=== PATIENT | female | born 1990 | race Caucasian/White ===

== ENCOUNTER 2018-11-14 23:18 | Emergency (ER) | payer OTHER, SELFPAY ==
[2018-11-14 23:33] VITALS: BP 148/85; PULSE 111; RESP 22; O2SAT 98
[2018-11-14] MEDS: SODIUM CHLORIDE 0.9% 1,000 ML 1000 ML IV (23:55)
[2018-11-15 00:01] LABS: Add Manual Diff / Slide Review NO; Basophils Absolute Auto 100 /uL (0-100); Basophils Percent Auto 1.2 % (0-2); Eosinophils Absolute Auto 100 /uL (0-450); Eosinophils Percent Auto 0.9 % (2-4); Hematocrit 42.7 % (36-46); Hemoglobin 14.5 g/dL (12.0-16.0); Lymphocytes Absolute Auto 1700 /uL (1100-4500); Lymphocytes Percent Auto 26.3 % (25-40); Mean Corpuscular HGB Conc 33.9 % (30-36); Mean Corpuscular Hemoglobin 31.7 PG (26-34); Mean Corpuscular Volume 93.7 fL (80-100); Monocytes Absolute Auto 600 /uL (0-900); Monocytes Percent Auto 9.8 % (3-14); Neutrophils Absolute Auto 3900 /uL (1500-7000); Neutrophils Percent Auto 61.8 % (50-75); Platelet Count 405 X10^3/uL (150-400); Red Blood Cell Count 4.56 X10^6/uL (4.0-5.2); White Blood Cell Count 6.3 X10^3/uL (4.5-11.0)
[2018-11-15 00:16] LABS: Alanine Aminotransferase 305 IU/L (9-52); Albumin 5.1 g/dL (3.5-5.0); Albumin Globulin Ratio 1.5 (1.0-2.8); Alkaline Phosphatase 68 U/L (38-126); Aspartate Aminotransferase 641 IU/L (14-36); BUN Creatinine Ratio 13.3 (6-22); Bilirubin Total 1.1 mg/dL (0.2-1.3); Bilirubin Unconjugated 0.7 mg/dL (0.0-1.1); Blood Urea Nitrogen 8 mg/dL (7-17); Calcium 9.1 mg/dL (8.4-10.2); Carbon Dioxide 24 mmol/L (22-32); Chloride 99 mmol/L (98-107); Estimated Glomerular Filt Rate > 60.0 mL/min (>60); Globulin 3.5 g/dL (1.7-4.1); Glucose 123 mg/dL (70-100); HEMOLYSIS < 15 (0-50); Lipase 257 U/L (23-300); Magnesium 2.1 mg/dL (1.6-2.3); Potassium 3.9 mmol/L (3.4-5.1); Sodium 142 mmol/L (137-145); Total Protein 8.6 g/dL (6.3-8.2)
[2018-11-15 00:23] LABS: Ethanol (ETOH) 362 mg/dL
[2018-11-15 00:29] LABS: Urine Amphetamines Negative (Negative); Urine Barbiturates Negative (Negative); Urine Benzodiazepines Negative (Negative); Urine Cocaine Negative (Negative); Urine MDMA Negative (Negative); Urine Methadone Negative (Negative); Urine Methamphetamines Negative (Negative); Urine Morphine/Opi cutoff 2000 Negative (Negative); Urine Oxycodone Negative (Negative); Urine Phencyclidine Negative (Negative); Urine Tetrahydrocannabinol Negative (Negative); Urine Tricyclic Antidepressant Negative (Negative)
[2018-11-15 01:00] VITALS: TEMP 37.1
--- NOTE | 2018-11-15 01:47 | PC.NURSE ---
Pt walked up to nurse station from room stating I pulled my IV out. I had to go pee. Pt did not leave room to go the the bathroom. Pt now states I don't have to go anymore. When asked why she did not use the call day she stated I dont have one. Call day was secured to bed rail. Pt stated I did'nt see it there, sorry. Pt redirected to use call ady for any needs. Pt requests another IV. Provider notified. No orders received.
--- NOTE | 2018-11-15 01:55 | PC.NURSE ---
Addendum entered by Nazia Mena R.N. 11/15/18 02:09: [id number] Pt beginning to pace in room, becoming increasingly anxious, DR aware and 2 mg ativan IM ordered and given to pt. Pt resting on stretcher updated on plan of care by and RN. Original Note: Pt
[2018-11-15] MEDS: LORazepam 2 MG/ML SYRINGE IM (02:00)
--- NOTE | 2018-11-15 02:05 | PC.NURSE ---
Pt left room again and walked up to nurses station asking for something for nausea. Pt redirected to room and encouraged to use call day. Pt stated Oh yeah, call day.
[2018-11-15] MEDS: ONDANSETRON 4 MG ODT SL (02:23)
[2018-11-15 02:30] VITALS: BP 118/78; PULSE 97; RESP 15; O2SAT 98
--- NOTE | 2018-11-15 02:43 | ED_ITS ---
HPI - Alcohol General Chief Complaint: Toxicology Problem Stated Complaint: drank more than a fifth of vodka, not eating Time Seen by Provider: 11/14/18 23:25 Source: patient Mode of arrival: ambulatory Limitations: no limitations History of Present Illness HPI narrative: 28F non smoker with extensive history of alcohol abuse presents with significant other and chief complaint of a desire to get to a detox center. She's been 4 previous times and most recently was at [facility] in [place], [place]. She's yet to contact them about availability of a bed. She drinks nearly a half gallon of vodka daily. She's been through withdrawals before, but has never had seizures. she is admittedly anxious and a bit worked up. She denies headache but has nausea. She denies any visual or auditory hallucinations. She denies any suicidal or homicidal ideations. She denies any history of violent behavior or arson. She begins having withdrawal type symptoms about 5-6 hours after cessation of drinking MD complaint: alcohol intoxication and alcohol withdrawal Last drink: just prior to this admission Chronic alcohol use: Yes Previous visits for alcohol intoxication: No Recent trauma: No Associated symptoms: nausea Treatments prior to arrival: none Related Data Allergies Allergy/AdvReac Type Severity Reaction Status Date / Time No Known Drug Allergies Allergy Verified 11/14/18 23:35 Review of Systems Constitutional Denies chills, Denies fever(s), Denies lethargy and Denies weakness Eyes Denies change in vision, Denies eye discharge, Denies irritation and Denies loss of vision ENT Ears, Nose, Mouth, and Throat: Denies change in voice, Denies neck pain and Denies sore throat Cardiovascular Denies chest pain, Denies irregular heart rhythm, Denies lightheadedness, Denies palpitations, Denies dyspnea, Denies dyspnea on exertion and Denies orthopnea Respiratory Denies cough, Denies dyspnea, Denies dyspnea on exertion and Denies wheezing Gastrointestinal Gastrointestinal: Denies abdominal pain, Denies change in bowel habits, Denies diarrhea, Denies nausea and Denies vomiting Genitourinary Denies hematuria, Denies flank pain, Denies urinary incontinence and Denies urinary urgency Musculoskeletal Denies neck pain Integumentary/Breasts Denies pruritus, Denies erythema, Denies rash and Denies wounds Neurologic Denies confusion, Denies loss of vision and Denies weakness Psychiatric Reports anxiety, Denies confusion, Denies depression, Denies homicidal ideation and Denies suicidal ideation Endocrine Denies palpitations Hematologic/Lymphatic Denies easy bruising Allergic/Immunologic Denies wheezing Exam Narrative Exam Narrative: GENERAL: 28-year-old female appears stated age and is visibly a bit anxious and agitated. She has very subtle slurring of her words and smells of alcohol. HEAD: Atraumatic. Normocephalic. No temporal or scalp tenderness. EYES: Pupils equal round and reactive. Extraocular motions intact. No scleral icterus. No injection or drainage. ENT: Nose without bleeding, purulent drainage or septal hematoma. Throat without erythema, tonsillar hypertrophy or exudate. Uvula midline. Airway patent. NECK: Trachea midline. No JVD or lymphadenopathy. Supple, nontender, no meningeal signs. CARDIOVASCULAR: Regular rate and rhythm without murmurs, gallops, or rubs. RESPIRATORY: Clear to auscultation. Breath sounds equal bilaterally. No wheezes, rales, or rhonchi. GASTROINTESTINAL: Abdomen soft, non-tender, nondistended. No hepato- splenomegaly, or palpable masses. No guarding. EXTREMITIES: No clubbing, cyanosis, or edema. No joint tenderness, effusion, or edema noted. BACK: Nontender without deformity or crepitance. No flank tenderness. NEURO: AOx3. SKIN: No rash or erythema. Initial Vital Signs Initial Vital Signs: Vital Signs Pulse Rate 111 H 11/14/18 23:33 Respiratory Rate 22 11/14/18 23:33 Blood Pressure 148/85 H 11/14/18 23:33 Pulse Oximetry 98 11/14/18 23:33 Course Course Narrative: [facility]AN[facility]-Ignacio for Alcohol Withdrawal from [facility] on 11/15/2018 All calculations should be rechecked by clinician prior to use RESULT SUMMARY: 9 points Patients with scores ?9 may require medication for withdrawal. INPUTS: Nausea/vomiting ?> 1 = Mild nausea and no vomiting Tremor ?> 1 = Not visible, but can be felt fingertip to fingertip Paroxysmal sweats ?> 0 = No sweat visible Anxiety ?> 3 = (More severe symptoms) Agitation ?> 4 = Moderately fidgety and restless Tactile disturbances ?> 0 = None Auditory disturbances ?> 0 = Not present Visual disturbances ?> 0 = Not present Headache/fullness in head ?> 0 = Not Present Orientation/clouding of sensorium ?> 0 = Oriented, can do serial additions Orders Ordered: ED Orders 11/14/18 22:50 Complete Blood Count AUTO DIFF Stat Comprehensive Metabolic Panel Stat Ethanol (ETOH) Stat Hepatic (Liver) Panel Stat Lipase Stat Magnesium Stat 11/14/18 23:53 Urine Drug Screen, Rapid Stat Discontinued Medications Sodium Chloride (Normal Saline 0.9%) 1,000 mls @ 1,000 mls/hr IV BOLUS ONE Stop: 11/15/18 00:52 Last Infusion: 11/15/18 01:08 Dose: 1,000 mls/hr Admin: 11/14/18 23:55 Dose: 1,000 mls/hr Lorazepam (Ativan) 2 mg IM NOW ONE Stop: 11/15/18 01:58 Last Admin: 11/15/18 02:00 Dose: 2 mg Lorazepam (Ativan) 1 mg PO NOW ONE Stop: 11/15/18 05:34 Last Admin: 11/15/18 05:46 Dose: 1 mg Ondansetron HCl (Zofran Odt) 4 mg SL NOW ONE Stop: 11/15/18 02:17 Last Admin: 11/15/18 02:23 Dose: 4 mg Ondansetron HCl (Zofran Odt Prepack) 1 bottle MISC SEEINSTR ONE Stop: 11/15/18 05:58 Last Admin: 11/15/18 05:59 Dose: 1 bottle Reevaluation(s) Reevaluation #1: patient developed some increasing agitation and pulled IV. She was easily verbally de-escalated and given some ativan to help take the edge off it is my opinion that the patient needs admission for detox. [facility] has bed availability and is awaiting necessary paperwork. Patient has been accepted at [facility] patient's parents are coming to pick her up, they are expected shortly. Patient is resting comfortably. [facility]TAL[facility] paperwork completed and all placed in a folder with physician note, labs, etc. Given to parents Vital Signs - 8 hr 11/14/18 23:33 11/15/18 01:00 11/15/18 02:30 Temperature 98.7 F Pulse Rate 111 H 97 H Respiratory Rate 22 15 Blood Pressure 148/85 H Blood Pressure [Right Arm] 118/78 Pulse Oximetry 98 98 11/15/18 05:32 Temperature Pulse Rate 95 H Respiratory Rate 14 Blood Pressure Blood Pressure [Right Arm] 116/71 Pulse Oximetry 97 MDM - Alcohol Lab Data Result diagrams: 11/14/18 22:50 11/14/18 22:50 Labs: Lab Results 11/14/18 11/14/18 11/15/18 Range/Units 22:50 22:50 00:20 WBC 6.3 (4.5-11.0) X10^3/uL RBC 4.56 (4.0-5.2) X10^6/uL Hgb 14.5 (12.0-16.0) g/dL Hct 42.7 (36-46) % MCV 93.7 (80-100) fL MCH 31.7 (26-34) PG MCHC 33.9 (30-36) % RDW 14.0 (11.6-14.8) % Plt Count 405 H (150-400) X10^3/uL Neut % (Auto) 61.8 (50-75) % Lymph % (Auto) 26.3 (25-40) % [place] % (Auto) 9.8 (3-14) % Eos % (Auto) 0.9 L (2-4) % Baso % (Auto) 1.2 (0-2) % Neut # (Auto) 3900 (1654-4625) /uL Lymph # (Auto) 1700 (6870-5775) /uL [place] # (Auto) 600 (0-900) /uL Eos # (Auto) 100 (0-450) /uL Baso # (Auto) 100 (0-100) /uL Sodium 142 (137-145) mmol/L Potassium 3.9 (3.4-5.1) mmol/L Chloride 99 (98-107) mmol/L Carbon Dioxide 24 (22-32) mmol/L BUN 8 (7-17) mg/dL Creatinine 0.60 (0.52-1.04) mg/dL Estimated GFR > 60.0 (>60) mL/min BUN/Creatinine Ratio 13.3 (6-22) Glucose 123 H (70-100) mg/dL Calcium 9.1 (8.4-10.2) mg/dL Magnesium 2.1 (1.6-2.3) mg/dL Total Bilirubin 1.1 (0.2-1.3) mg/dL Conjugated Bilirubin 0.0 (0.0-0.3) md/dL Unconjugated Bilirubin 0.7 (0.0-1.1) mg/dL AST 641 H (14-36) IU/L ALT 305 H (9-52) IU/L Alkaline Phosphatase 68 (38-126) U/L Total Protein 8.6 H (6.3-8.2) g/dL Albumin 5.1 H (3.5-5.0) g/dL Globulin 3.5 (1.7-4.1) g/dL Albumin/Globulin Ratio 1.5 (1.0-2.8) Lipase 257 (23-300) U/L Urine Opiates Screen Negative (Negative) Ur Oxycodone Screen Negative (Negative) Urine Methadone Screen Negative (Negative) Ur Barbiturates Screen Negative (Negative) U Tricyclic Antidepress Negative (Negative) Ur Phencyclidine Scrn Negative (Negative) Ur Amphetamines Screen Negative (Negative) U Methamphetamines Scrn Negative (Negative) Ur MDMA Scrn (Ecstasy) Negative (Negative) U Benzodiazepines Scrn Negative (Negative) Urine Cocaine Screen Negative (Negative) U Marijuana (THC) Screen Negative (Negative) Ethyl Alcohol 362 mg/dL Point of Care Testing Test Results Negative Urine Dip Bedside Urine Glucose Negative Bedside Urine Bilirubin - Negative Bedside Urine Ketone - Negative Urine Specific [place] 1.015 Bedside Urine Occult Blood +++ Bedside Urine pH 6.0 Bedside Urine Protein +++ 300 Bedside Urine Urobilinogen - Negative Bedside Urine Nitrite - Negative Bedside Urine Leukocytes +/- 15 Esterase Discharge Plan Departure Patient Disposition: [facility] Clinical Impression: Alcohol withdrawal syndrome Qualifiers: Complication of substance-induced condition: uncomplicated Qualified Code(s): F10.230 - Alcohol dependence with withdrawal, uncomplicated Discharge Date/Time: 11/15/18 06:00 Interventions: ED Discharge Assessment Last Done: 11/15/18 05:50 Activity Restrictions/Additional Instructions: please proceed directly to [facility] at [address] [address] do not stop and get any alcohol or consume any street drugs as this will void the medical clearance which was provided tonight at [facility]
[2018-11-15 05:32] VITALS: BP 116/71; PULSE 95; RESP 14; O2SAT 97
[2018-11-15] MEDS: LORazepam 0.5 MG TABLET 1 MG PO (05:46)
[2018-11-15] MEDS: ONDANSETRON 4 MG ODT PREPACK 1 BOTTLE MISC (05:59)
== END 2018-11-15 06:00 | disposition short-term general hospital (02) ==
PROVIDERS: Emergency Provider Emergency Medicine
DX: F10.239 Alcohol dependence with withdrawal, unspecified (principal)
CPT/HCPCS: 36591; 80053; 80076; 80305; 80320; 81003; 81025; 83690; 83735; 85025; 96360; 96372; 99283; 99284; J2060